=== PATIENT | female | born 1955 ===

== ENCOUNTER 2019-09-03 10:30 | Outpatient (RCR) | payer MEDICARE, SELFPAY ==
--- NOTE | 2019-09-03 11:38 | PCPTNOTE ---
Sarah Stanton PT completed an inpatient rehab wheelchair evaluation on Kendy Gonzalez on 09/03/2019. The patient is unable to safely and independently ambulate household distances due to their current impairments. Their diagnosis is cva I63.9/mobility chair and their impairments include decreased strength, decreased endurance, decreased range of motion, decreased balance, lower extremity weakness, and ataxia. [f pt name]'s weight bearing status is weight-bearing as tolerated on the bilateral lower legs. The patient demonstrates significant functional mobility limitations that impair their ability to participate in mobility-related activities of daily living (MRADLs), including toileting, feeding, dressing, grooming, and bathing in the customary locations in the home. These limitations cannot be sufficiently resolved by the use of an appropriately fitted cane or walker. It is recommended that the patient utilize a wheelchair for functional mobility within the home in order to facilitate optimal safety, independence and participation in all MRADL's and adequately access their home environment on a regular basis. The patient's home provides adequate access between rooms, maneuvering space, and surfaces to accommodate the recommended wheelchair. The use of a wheelchair for functional mobility is strongly recommended and the patient is receptive to using the wheelchair. The use of this wheelchair will significantly improve the patient's ability to participate in MRADLS and the patient will use it on a regular basis in the home. This will facilitate optimal safety, independence, and participation. The patient has demonstrated sufficient physical and mental capabilities needed to safely propel a manual wheelchair that is provided in the home during a typical day. See attached wheelchair mobility device assessment documentation. Evaluating Therapist Date I agree with and certify that the above recommendation is medically necessary. Referring Physician Date I agree with and certify that the above recommendation is medically necessary. Referring Physician Date
--- NOTE | 2019-09-03 11:40 | PCPTNOTE ---
Patient:Kendy Gonzalez Date of :1955 Thank you for referring this patient to [facility]. The patient has been evaluated for wheelchair seating and recommendations have been made without assistance of the DME provider present. The findings have been scanned into the patient's EMR. Please review, sign, date and return this recognition of care provided. I agree with and certify that the following plan for DME equipment is medically necessary.
== END 2019-09-06 14:13 | disposition home or self-care (01) ==
LOC: ANHPT 10:30
PROVIDERS: PCP Family Medicine; Visit Provider Family Medicine
DX: I63.9 Cerebral infarction, unspecified (principal)
CPT/HCPCS: 97163